=== PATIENT | female | born 2000 | race Caucasian/White ===

== ENCOUNTER 2020-08-02 13:29 | Emergency (ER) | payer OTHER ==
[~2020-08-02] VITALS: Ht 170.2 cm; Wt 95.2 kg
[~2020-08-02 13:29] MED LIST: ALBU2SYA PO; ALBU90OI INH; AMOX50SU PO; AZIT250 PO; CODACEE120 PO; GUAI100SY PO; HYDPAM50 PO; PRED15SY PO; SULTRIEL PO; TRIAMINIC
[2020-08-02 13:46] LABS: Source, Urine Clean Catch
[2020-08-02 13:56] LABS: Appearance, Urine Hazy (Clear); Bilirubin, Urine Neg (Neg); Blood, Urine 4+ (Neg); Color, Urine Yellow (P-Yellow); Glucose Qualitative, Urine Neg (Neg); Ketones, Urine Neg (Neg); Leukocyte Esterase, Urine 2+ (Neg); Nitrite, Urine Neg (Neg); Protein, Urine 2+ (Neg); Specific Gravity, Urine 1.025 (1.003-1.022); Urobilinogen, Urine NORM (Normal)
[2020-08-02 14:17] LABS: Mucus Light (0-Heavy)
[2020-08-02 14:18] LABS: Bacteria Mod /hpf; Red Blood Cells, Urine 25-50 /hpf (0-2); Squamous Epithelial Cells Mod /hpf (Few)
[2020-08-02 14:19] LABS: Amorphous Light (0-Heavy); Transitional Epithelial Cells Few /hpf (0-Rare)
[2020-08-02] MEDS ORDERED: CEPH500 PO (14:25)
== END 2020-08-02 14:39 | disposition home or self-care (01) ==
LOC: ER 13:29
PROVIDERS: Physician Assistant
DX: N39.0 Urinary tract infection, site not specified (principal)
CPT/HCPCS: 81001; 81025; 87077; 87086; 87186; 99283

== ENCOUNTER → 2022-10-31 | Outpatient (CLI) | payer OTHER ==
[~2022-10-31] MED LIST changes: +CEPH500 PO
[2022-10-31 14:52] LABS: Source, Urine Clean Catch
[2022-10-31 17:08] LABS: Appearance, Urine Clear (Clear); Bilirubin, Urine Neg (Neg); Blood, Urine Neg (Neg); Color, Urine Yellow (P-Yellow); Glucose Qualitative, Urine Neg (Neg); Ketones, Urine 4+ (Neg); Leukocyte Esterase, Urine Neg (Neg); Nitrite, Urine Neg (Neg); Protein, Urine 1+ (Neg); Specific Gravity, Urine 1.015 (1.003-1.022); Urobilinogen, Urine NORM (Normal)
[2022-10-31 17:12] LABS: BASOPHILS ABSOLUTE AUTO 0.06 K/mm3 (0.00-0.23); BASOPHILS PERCENT AUTO 1 % (0-2); EOSINOPHILS ABSOLUTE AUTO 0.08 K/mm3 (0.00-0.68); EOSINOPHILS PERCENT AUTO 1 % (0-6); Hematocrit 38.3 % (33.0-51.0); Hemoglobin 13.2 g/dL (11.5-16.0); IMMATURE GRAN ABSOLUTE AUTO 0.03 K/mm3 (0.00-0.10); IMMATURE GRAN PERCENT AUTO 0 % (0-1); LYMPHOCYTES ABSOLUTE AUTO 2.01 K/mm3 (0.84-5.20); LYMPHOCYTES PERCENT AUTO 21 % (21-46); MONOCYTES ABSOLUTE AUTO 0.56 K/mm3 (0.16-1.47); MONOCYTES PERCENT AUTO 6 % (4-13); Mean Corpuscular HGB Conc 34.5 g/dL (31.5-36.5); Mean Corpuscular Volume 84 fL (80-100); Mean Platelet Volume 10.4 fL (9.1-12.4); NEUTROPHILS ABSOLUTE AUTO 6.91 K/mm3 (1.96-9.15); NEUTROPHILS PERCENT AUTO 72 % (41-73); Platelet Count 347 K/mm3 (150-400); RDW Coefficient Variation 13.3 % (11.7-14.2); RDW Standard Deviation 41.1 fL (35.1-46.3); Red Blood Cell Count 4.55 M/mm3 (3.80-5.20); White Blood Cell Count 9.65 K/mm3 (4.00-11.30)
[2022-11-01 07:11] LABS: HIV AB/P24 AG SCREEN Non Reactive (Non Reactive)
[2022-11-01 08:11] LABS: HBSAG SCREEN Negative (Negative)
== END | disposition home or self-care (01) ==
LOC: LAB 14:46 → LAB SHORT 14:46
PROVIDERS: Registered Nurse Community Health
DX: Z34.91 Encounter for supervision of normal pregnancy, unspecified, first trimester (principal)
CPT/HCPCS: 80055; 84443; 87086; 87389

== ENCOUNTER → 2022-11-19 | Outpatient (CLI) | payer OTHER ==
[2022-11-21 04:40] LABS: CHLAMYDIA TRACHOMATIS, NAA Negative (Negative)
== END | disposition home or self-care (01) ==
LOC: LAB 12:00 → LAB SHORT 12:00
PROVIDERS: Registered Nurse Community Health
DX: Z34.81 Encounter for supervision of other normal pregnancy, first trimester (principal)
CPT/HCPCS: 87491; 87591

== ENCOUNTER → 2023-01-30 | Outpatient (CLI) | payer OTHER | END | disposition home or self-care (01) | LOC: LAB SHORT 13:32 → LAB 13:32 | PROVIDERS: Registered Nurse Community Health | DX: O35.8XX9 Maternal care for other (suspected) fetal abnormality and damage, other fetus (principal) | CPT/HCPCS: 86644; 86645; 86777; 86778 ==

== ENCOUNTER → 2023-03-19 | Outpatient (CLI) | payer OTHER ==
[2023-03-19 13:42] LABS: Hematocrit 37.4 % (33.0-51.0); Hemoglobin 12.6 g/dL (11.5-16.0)
== END | disposition home or self-care (01) ==
LOC: LAB 11:42 → LAB SHORT 11:42
PROVIDERS: Registered Nurse Community Health
DX: Z34.81 Encounter for supervision of other normal pregnancy, first trimester (principal)
CPT/HCPCS: 82950; 85014; 85018

== ENCOUNTER → 2023-05-08 | Outpatient (CLI) | payer OTHER | LOC: LAB SHORT 11:30 → LAB 11:30 | DX: Z34.93 Encounter for supervision of normal pregnancy, unspecified, third trimester (principal); Z3A.00 Weeks of gestation of pregnancy not specified | CPT/HCPCS: 87081; 87150 ==

== ENCOUNTER 2023-05-31 04:15 | Inpatient (IN) | payer OTHER ==
[~2023-05-31] VITALS: Ht 167.6 cm; Wt 98.0 kg
[2023-05-31] VITALS (16 sets, daily range): BP systolic 87–145; BP diastolic 56–85
[2023-05-31 05:13] LABS: BASOPHILS ABSOLUTE AUTO 0.04 K/mm3 (0.00-0.23); BASOPHILS PERCENT AUTO 0 % (0-2); EOSINOPHILS ABSOLUTE AUTO 0.17 K/mm3 (0.00-0.68); EOSINOPHILS PERCENT AUTO 1 % (0-6); Hematocrit 38.4 % (33.0-51.0); Hemoglobin 13.4 g/dL (11.5-16.0); IMMATURE GRAN ABSOLUTE AUTO 0.08 K/mm3 (0.00-0.10); IMMATURE GRAN PERCENT AUTO 1 % (0-1); LYMPHOCYTES ABSOLUTE AUTO 3.06 K/mm3 (0.84-5.20); LYMPHOCYTES PERCENT AUTO 21 % (21-46); MONOCYTES ABSOLUTE AUTO 1.02 K/mm3 (0.16-1.47); MONOCYTES PERCENT AUTO 7 % (4-13); Mean Corpuscular HGB 29.5 pg (26.0-34.0); Mean Corpuscular HGB Conc 34.9 g/dL (31.5-36.5); Mean Corpuscular Volume 84 fL (80-100); Mean Platelet Volume 11.1 fL (9.1-12.4); NEUTROPHILS ABSOLUTE AUTO 10.56 K/mm3 (1.96-9.15); NEUTROPHILS PERCENT AUTO 71 % (41-73); Platelet Count 309 K/mm3 (150-400); RDW Coefficient Variation 13.8 % (11.7-14.2); RDW Standard Deviation 42.4 fL (35.1-46.3); Red Blood Cell Count 4.55 M/mm3 (3.80-5.20); White Blood Cell Count 14.93 K/mm3 (4.00-11.30)
[2023-06-01 00:02] VITALS: BP 112/69
[2023-06-01 05:34] VITALS: BP 121/72
[2023-06-01 06:20] LABS: Hematocrit 33.9 % (33.0-51.0); Hemoglobin 11.4 g/dL (11.5-16.0); Mean Corpuscular HGB 29.4 pg (26.0-34.0); Mean Corpuscular HGB Conc 33.6 g/dL (31.5-36.5); Mean Corpuscular Volume 87 fL (80-100); Mean Platelet Volume 10.8 fL (9.1-12.4); Platelet Count 233 K/mm3 (150-400); RDW Coefficient Variation 14.2 % (11.7-14.2); RDW Standard Deviation 44.7 fL (35.1-46.3); Red Blood Cell Count 3.88 M/mm3 (3.80-5.20); White Blood Cell Count 11.72 K/mm3 (4.00-11.30)
[2023-06-01 07:45] VITALS: BP 132/75
[2023-06-01] MEDS ORDERED: PRENATAL TABLE1 EAC2 PO (11:45)
[2023-06-01] MEDS ORDERED: IBUP800 PO (11:45)
[2023-06-01 11:51] VITALS: BP 121/84
== END 2023-06-01 11:59 | disposition home or self-care (01) | DRG 807 ==
LOC: OBS 04:15 → BC 04:17 → OBS 04:37 → BC 04:39
PROVIDERS: ADMIT Registered Nurse Community Health
PROC: 10E0XZZ Delivery of Products of Conception, External Approach (ICD-10-PCS; principal; 2023-05-31)
DX: O99.344 Other mental disorders complicating childbirth (principal); Z37.0 Single live birth; Z88.8 Allergy status to other drugs, medicaments and biological substances; F41.9 Anxiety disorder, unspecified; Z3A.39 39 weeks gestation of pregnancy; O70.0 First degree perineal laceration during delivery
CPT/HCPCS: 36415; 85025; 85027; 86850; 86900; 86901; A9270; J1885; J2590

== ENCOUNTER → 2024-10-14 | Outpatient (CLI) | payer SELFPAY ==
[~2024-10-14] MED LIST changes: +IBUP800 PO; +PRENATAL TABLE1 EAC2 PO
[2024-10-14 14:23] LABS: Hematocrit 36.3 % (33.0-51.0); Hemoglobin 12.4 g/dL (11.5-16.0); Mean Corpuscular HGB 30.2 pg (26.0-34.0); Mean Corpuscular HGB Conc 34.2 g/dL (31.5-36.5); Mean Corpuscular Volume 88 fL (80-100); Mean Platelet Volume 10.5 fL (9.1-12.4); Platelet Count 313 K/mm3 (150-400); RDW Coefficient Variation 13.2 % (11.7-14.2); RDW Standard Deviation 42.8 fL (35.1-46.3); Red Blood Cell Count 4.11 M/mm3 (3.80-5.20); White Blood Cell Count 8.72 K/mm3 (4.00-11.30)
[2024-10-14 14:49] LABS: Free Thyroxine 0.96 ng/dL (0.70-1.60)
[2024-10-14 14:54] LABS: Albumin, Blood 3.6 g/dL (3.4-5.0); Albumin/Globulin Ratio 1.1 (0.8-1.8); Bilirubin, Total 0.3 mg/dL (0.1-1.0); Bun/Creatinine Ratio 12.6 (12.0-20.0); Calcium, Blood 9.3 mg/dL (8.5-10.1); Creatinine, Blood 0.55 mg/dL (0.40-1.00); Globulin, Blood 3.2 g/dL (2.2-4.0); Potassium, Blood 3.5 mmol/L (3.5-5.5); Thyroid Stimulating Hormone 1.11 uIU/mL (0.360-4.800); Total Protein, Blood 6.8 g/dL (6.4-8.2); Triiodothyronine, Free 2.36 pg/mL (2.18-3.98)
== END ==
LOC: LAB SHORT 12:59 → LAB 12:59
PROVIDERS: Registered Nurse Community Health
DX: R56.9 Unspecified convulsions (principal)
CPT/HCPCS: 80053; 84439; 84443; 84481; 85027

== ENCOUNTER 2024-11-23 10:21 | Emergency (ER) | payer OTHER ==
[~2024-11-23] VITALS: Ht 170.2 cm; Wt 72.6 kg
[2024-11-23] MEDS ORDERED: NS 1,000 ML IV SCH (10:50)
[2024-11-23] MEDS ORDERED: LORazepam 2 MG/ML 1ML Injection IV ONE (10:50)
[2024-11-23 11:10] LABS: BASOPHILS ABSOLUTE AUTO 0.07 K/mm3 (0.00-0.23); BASOPHILS PERCENT AUTO 0 % (0-2); EOSINOPHILS ABSOLUTE AUTO 0.01 K/mm3 (0.00-0.68); EOSINOPHILS PERCENT AUTO 0 % (0-6); Hemoglobin 14.1 g/dL (11.5-16.0); IMMATURE GRAN ABSOLUTE AUTO 0.12 K/mm3 (0.00-0.10); IMMATURE GRAN PERCENT AUTO 1 % (0-1); LYMPHOCYTES ABSOLUTE AUTO 1.22 K/mm3 (0.84-5.20); LYMPHOCYTES PERCENT AUTO 5 % (21-46); MONOCYTES ABSOLUTE AUTO 1.07 K/mm3 (0.16-1.47); MONOCYTES PERCENT AUTO 5 % (4-13); Mean Corpuscular HGB 30.5 pg (26.0-34.0); Mean Corpuscular HGB Conc 34.4 g/dL (31.5-36.5); Mean Corpuscular Volume 89 fL (80-100); Mean Platelet Volume 10.2 fL (9.1-12.4); NEUTROPHILS ABSOLUTE AUTO 20.12 K/mm3 (1.96-9.15); NEUTROPHILS PERCENT AUTO 89 % (41-73); Platelet Count 321 K/mm3 (150-400); RDW Coefficient Variation 13.3 % (11.7-14.2); RDW Standard Deviation 43.4 fL (35.1-46.3); Red Blood Cell Count 4.62 M/mm3 (3.80-5.20); White Blood Cell Count 22.61 K/mm3 (4.00-11.30)
[2024-11-23] MEDS ORDERED: ZAFEMY 150-351 EACH (11:12)
[2024-11-23] MEDS ORDERED: ZOLOFT50 MG PO (11:12)
[2024-11-23 11:45] LABS: Alanine Aminotransfer (ALT/SGP 18 U/L (12-78); Albumin/Globulin Ratio 1.2 (0.8-1.8); Alk Phos 59 U/L (50-136); Anion Gap 9 mmol/L (3-11); Aspartate Aminotrans (AST/SGOT 19 U/L (12-37); Bilirubin, Total 0.7 mg/dL (0.1-1.0); Blood Urea Nitrogen 9 mg/dL (8-24); Bun/Creatinine Ratio 14.1 (12.0-20.0); CO2, Blood 21 mmol/L (21-32); Calcium, Blood 9.2 mg/dL (8.5-10.1); Chloride, Blood 116 mmol/L (98-108); Creatinine, Blood 0.64 mg/dL (0.40-1.00); Ethanol (Alcohol), Blood, Med <3 mg/dL; Globulin, Blood 3.3 g/dL (2.2-4.0); Glomerular Filtration Rate 126 (60-); Glucose, Blood 118 mg/dL (70-99); Sodium, Blood 142 mmol/L (136-145); Total Protein, Blood 7.3 g/dL (6.4-8.2)
[2024-11-23 13:01] LABS: Source, Urine Clean Catch
[2024-11-23 13:12] LABS: Appearance, Urine Clear (Clear); Bilirubin, Urine Neg (Neg); Blood, Urine 5+ (Neg); Glucose Qualitative, Urine Neg (Neg); Ketones, Urine 3+ (Neg); Leukocyte Esterase, Urine Neg (Neg); Nitrite, Urine Neg (Neg); Protein, Urine 1+ (Neg); Specific Gravity, Urine 1.015 (1.003-1.022); Urobilinogen, Urine NORM (Normal)
[2024-11-23 14:12] LABS: U Amphetamine Screen Not Detected; U Barbituate Screen Not Detected; U Benzodiazapine Screen Not Detected; U Buprenorphine Screen Not Detected; U Cannabinoids Screen DETECTED; U Cocaine Screen Not Detected; U Methadone Screen Not Detected; U Methamphetamine Screen Not Detected; U Opiates Screen Not Detected; U Oxycodone Screen Not Detected; U Phencyclidine Screen Not Detected
[2024-11-23] MEDS ORDERED: LEVE500 PO (14:29)
[2024-11-23 14:32] LABS: Color, Urine Pale Yellow (P-Yellow); Uric Acid Crystals Mod /hpf
[2024-11-23 14:33] LABS: Bacteria Many /hpf; Squamous Epithelial Cells Few /hpf (Few); White Blood Cells, Urine 0-2 /hpf (0-5)
[2024-11-23 14:44] VITALS: BP 119/70
[2024-11-26] MEDS ORDERED: Bactrim Ds Tab1 EACH PO (08:20)
== END 2024-11-23 15:55 | disposition home or self-care (01) ==
LOC: ER 10:21
PROVIDERS: Emergency Medicine
DX: R56.9 Unspecified convulsions (principal); F12.90 Cannabis use, unspecified, uncomplicated
CPT/HCPCS: 70450; 80053; 80320; 81001; 82947; 84146; 84703; 85025; 87077; 87086; 87186; 93005; 93010; 96361; 96374; 99285-25; J2060; J7030

== ENCOUNTER 2024-12-18 03:42 | Emergency (ER) | payer OTHER ==
[~2024-12-18] VITALS: Ht 170.2 cm; Wt 81.7 kg
[~2024-12-18 03:42] MED LIST changes: +Bactrim Ds Tab1 EACH PO; +LEVE500 PO; +ZAFEMY 150-351 EACH; +ZOLOFT50 MG PO
[2024-12-18 04:04] LABS: BASOPHILS ABSOLUTE AUTO 0.08 K/mm3 (0.00-0.23); BASOPHILS PERCENT AUTO 1 % (0-2); EOSINOPHILS PERCENT AUTO 5 % (0-6); Hematocrit 37.8 % (33.0-51.0); Hemoglobin 12.6 g/dL (11.5-16.0); IMMATURE GRAN ABSOLUTE AUTO 0.03 K/mm3 (0.00-0.10); IMMATURE GRAN PERCENT AUTO 0 % (0-1); LYMPHOCYTES ABSOLUTE AUTO 1.52 K/mm3 (0.84-5.20); LYMPHOCYTES PERCENT AUTO 19 % (21-46); MONOCYTES ABSOLUTE AUTO 0.34 K/mm3 (0.16-1.47); MONOCYTES PERCENT AUTO 4 % (4-13); Mean Corpuscular HGB 29.8 pg (26.0-34.0); Mean Corpuscular HGB Conc 33.3 g/dL (31.5-36.5); Mean Corpuscular Volume 89 fL (80-100); Mean Platelet Volume 10.6 fL (9.1-12.4); NEUTROPHILS ABSOLUTE AUTO 5.81 K/mm3 (1.96-9.15); NEUTROPHILS PERCENT AUTO 71 % (41-73); Platelet Count 299 K/mm3 (150-400); RDW Coefficient Variation 13.2 % (11.7-14.2); RDW Standard Deviation 43.4 fL (35.1-46.3); Red Blood Cell Count 4.23 M/mm3 (3.80-5.20); White Blood Cell Count 8.18 K/mm3 (4.00-11.30)
[2024-12-18 04:30] LABS: Albumin, Blood 3.6 g/dL (3.4-5.0); Albumin/Globulin Ratio 1.2 (0.8-1.8); Bilirubin, Total 0.5 mg/dL (0.1-1.0); Calcium, Blood 8.5 mg/dL (8.5-10.1); Creatinine, Blood 0.7 mg/dL (0.40-1.00); Globulin, Blood 2.9 g/dL (2.2-4.0); Potassium, Blood 4.2 mmol/L (3.5-5.5); Prolactin 69.5 ng/mL; Total Protein, Blood 6.5 g/dL (6.4-8.2)
[2024-12-18] MEDS ORDERED: Lactated Ringer's 1,000 ML IV ONE (04:50)
[2024-12-18 05:15] LABS: Source, Urine Clean Catch
[2024-12-18 05:26] LABS: Appearance, Urine Hazy (Clear); Bilirubin, Urine Neg (Neg); Blood, Urine Neg (Neg); Color, Urine Yellow (P-Yellow); Glucose Qualitative, Urine Neg (Neg); Ketones, Urine Neg (Neg); Leukocyte Esterase, Urine Neg (Neg); Nitrite, Urine Neg (Neg); Protein, Urine 2+ (Neg); Specific Gravity, Urine 1.025 (1.003-1.022); Urobilinogen, Urine NORM (Normal)
[2024-12-18 05:30] VITALS: BP 153/67
[2024-12-18 05:40] LABS: Bacteria Many /hpf; Red Blood Cells, Urine 0-2 /hpf (0-2); Squamous Epithelial Cells Many /hpf (Few)
[2024-12-18 05:41] LABS: Mucus Heavy (0-Heavy)
[2024-12-18 05:43] LABS: Amorphous Light (0-Heavy); Transitional Epithelial Cells Rare /hpf (0-Rare)
== END 2024-12-18 06:36 ==
LOC: ER 03:42
PROVIDERS: Student in an Organized Health Care Education/Training Program
DX: R56.9 Unspecified convulsions (principal); Z79.899 Other long term (current) drug therapy; Z79.3 Long term (current) use of hormonal contraceptives; Z79.2 Long term (current) use of antibiotics
CPT/HCPCS: 80053; 81001; 84146; 84703; 85025; 87086; 93005; 93010; 99284-25; J7120

== ENCOUNTER 2024-12-26 11:00 | Inpatient (IN) | payer OTHER ==
[~2024-12-26] VITALS: Ht 167.6 cm; Wt 72.6 kg
[~2024-12-26 11:00] MED LIST changes: -ZOLOFT50 MG PO
[2024-12-26 11:37] LABS: Source, Urine Clean Catch
[2024-12-26 11:42] LABS: Appearance, Urine Clear (Clear); Bilirubin, Urine Neg (Neg); Blood, Urine Neg (Neg); Glucose Qualitative, Urine Neg (Neg); Ketones, Urine Neg (Neg); Leukocyte Esterase, Urine Neg (Neg); Nitrite, Urine Neg (Neg); Protein, Urine Neg (Neg); Urobilinogen, Urine NORM (Normal)
[2024-12-26 11:46] LABS: BASOPHILS ABSOLUTE AUTO 0.08 K/mm3 (0.00-0.23); BASOPHILS PERCENT AUTO 1 % (0-2); EOSINOPHILS ABSOLUTE AUTO 0.34 K/mm3 (0.00-0.68); EOSINOPHILS PERCENT AUTO 5 % (0-6); Hemoglobin 11.6 g/dL (11.5-16.0); IMMATURE GRAN ABSOLUTE AUTO 0.01 K/mm3 (0.00-0.10); IMMATURE GRAN PERCENT AUTO 0 % (0-1); LYMPHOCYTES ABSOLUTE AUTO 1.21 K/mm3 (0.84-5.20); LYMPHOCYTES PERCENT AUTO 17 % (21-46); MONOCYTES ABSOLUTE AUTO 0.22 K/mm3 (0.16-1.47); MONOCYTES PERCENT AUTO 3 % (4-13); Mean Corpuscular HGB 29.1 pg (26.0-34.0); Mean Corpuscular HGB Conc 33.1 g/dL (31.5-36.5); Mean Corpuscular Volume 88 fL (80-100); Mean Platelet Volume 9.8 fL (9.1-12.4); NEUTROPHILS ABSOLUTE AUTO 5.16 K/mm3 (1.96-9.15); NEUTROPHILS PERCENT AUTO 74 % (41-73); Platelet Count 361 K/mm3 (150-400); RDW Coefficient Variation 13.2 % (11.7-14.2); RDW Standard Deviation 42.5 fL (35.1-46.3); Red Blood Cell Count 3.99 M/mm3 (3.80-5.20); White Blood Cell Count 7.02 K/mm3 (4.00-11.30)
[2024-12-26 11:48] LABS: Color, Urine Pale Yellow (P-Yellow)
[2024-12-26 11:57] LABS: U Amphetamine Screen Not Detected; U Barbituate Screen Not Detected; U Benzodiazapine Screen Not Detected; U Cannabinoids Screen DETECTED; U Cocaine Screen Not Detected; U Methadone Screen Not Detected; U Methamphetamine Screen Not Detected; U Opiates Screen Not Detected; U Phencyclidine Screen Not Detected
[2024-12-26 11:58] LABS: U Buprenorphine Screen Not Detected; U Oxycodone Screen Not Detected
[2024-12-26 12:08] LABS: Ethanol (Alcohol), Blood, Med <3 mg/dL; Salicylate 1.9 mg/dL (2.8-20.0)
[2024-12-26 12:14] LABS: Alanine Aminotransfer (ALT/SGP 19 U/L (12-78); Albumin, Blood 3.7 g/dL (3.4-5.0); Albumin/Globulin Ratio 1.3 (0.8-1.8); Alk Phos 47 U/L (50-136); Anion Gap 6 mmol/L (3-11); Aspartate Aminotrans (AST/SGOT 9 U/L (12-37); Bilirubin, Total 0.2 mg/dL (0.1-1.0); Blood Urea Nitrogen 7 mg/dL (8-24); Bun/Creatinine Ratio 10.1 (12.0-20.0); CO2, Blood 26 mmol/L (21-32); Calcium, Blood 8.8 mg/dL (8.5-10.1); Chloride, Blood 114 mmol/L (98-108); Creatinine, Blood 0.69 mg/dL (0.40-1.00); Globulin, Blood 2.8 g/dL (2.2-4.0); Glomerular Filtration Rate 123 (60-); Glucose, Blood 102 mg/dL (70-99); Potassium, Blood 3.2 mmol/L (3.5-5.5); Sodium, Blood 143 mmol/L (136-145); Total Protein, Blood 6.5 g/dL (6.4-8.2)
[2024-12-26 12:15] LABS: Acetaminophen, Random <2.0 ug/mL (10.0-30.0)
[2024-12-26 16:45] VITALS: BP 137/99
[2024-12-26] MEDS ORDERED: Potassium Chloride 20 MEQ TabCR PO ONE (17:25)
[2024-12-26] MEDS ORDERED: LORazepam 1 MG Tab PO ONE (17:30)
[2024-12-26] MEDS ORDERED: Potassium Chloride 20 MEQ/15 ML UDC PO ONE (17:30)
[2024-12-27] MEDS ORDERED: BIRTH CONTROL (10:36)
[2024-12-27] MEDS ORDERED: ZOLOFT50 MG PO (12:59)
== END 2024-12-26 20:59 | disposition home or self-care (01) | DRG 881 ==
LOC: ER 11:00 → EOR 11:01 → EDBEDREQSVC 16:11 → EDBEDREQTM 16:11 → EDBEDREQ 16:11 → EOR 20:59
PROVIDERS: ADMIT Student in an Organized Health Care Education/Training Program
DX: F43.21 Adjustment disorder with depressed mood (principal); R45.851 Suicidal ideations; F41.9 Anxiety disorder, unspecified; F12.10 Cannabis abuse, uncomplicated; Z88.8 Allergy status to other drugs, medicaments and biological substances; Z79.899 Other long term (current) drug therapy; Z79.82 Long term (current) use of aspirin
CPT/HCPCS: 80053; 80320; 81003; 81025; 84132; 85025; 93005; 93010; 99285-25; A9270; G0378; G0480

== ENCOUNTER 2024-12-26 11:01 | Inpatient (IN) | payer BC, OTHER ==
[~2024-12-26] VITALS: Wt 73.0 kg
[2024-12-26] MEDS ORDERED: Mirtazapine 30 MG SoluTab SL ONE (21:50)
[2024-12-26] MEDS ORDERED: Polyethylene Glycol 3350 17 gm PO PRN (21:50)
[2024-12-26] MEDS ORDERED: Haloperidol Lactate Inj. 5 MG/ML Injection IM PRN (21:55)
[2024-12-26] MEDS ORDERED: Ibuprofen 600 MG Tab PO PRN (21:55)
[2024-12-26] MEDS ORDERED: FLU VACC TS2024-25(6MOS UP)/PF 45 MCG/0.5 ML SYRINGE IM SCH (21:55)
[2024-12-26] MEDS ORDERED: DiphenhydrAMINE HCl 50 MG/ML 1ML Vial IV PRN (21:55)
[2024-12-26] MEDS ORDERED: Haloperidol 5 MG Tab PO PRN (21:55)
[2024-12-26] MEDS ORDERED: OLANZapine ODT 10 MG Tab MM PRN (21:55)
[2024-12-26] MEDS ORDERED: HydrOXYzine Pamoate 50 MG Cap PO PRN (21:55)
[2024-12-26] MEDS ORDERED: Acetaminophen 325 MG TABLET PO PRN (22:00)
[2024-12-26] MEDS ORDERED: Aluminum Hydroxide 320MG/5ML 473 ML PO PRN (22:00)
[2024-12-26] MEDS ORDERED: TraZODone HCl 50 MG Tab PO PRN (22:00)
[2024-12-26] MEDS ORDERED: DiphenhydrAMINE HCl 50 MG Cap PO PRN (22:00)
[2024-12-26] MEDS ORDERED: Calcium Carbonate 500 MG Tab Chew PO PRN (22:00)
[2024-12-26] MEDS ORDERED: Melatonin 3 MG Tab PO PRN (22:00)
[2024-12-26] MEDS ORDERED: Mirtazapine 15 MG SoluTab PO ONE (22:10)
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
[2024-12-26] MEDS ORDERED: LORazepam 2 MG/ML 1ML Injection IM PRN (23:45)
[2024-12-26] MEDS ORDERED: LORazepam 2 MG Tab PO PRN (23:50)
[2024-12-26] MEDS ORDERED: Ondansetron 4 MG SoluTab MM PRN (23:50)
--- NOTE | 2024-12-27 01:48 | NUR ---
I washed, dried, folded and put this patients clothes in bin #7 and put her valuables in the safe. I charged her phone but was unable to shut it off as this patient was having a very difficult time with emotional regulation upon admission. Her phone will need to charged prior to her discharge.
--- NOTE | 2024-12-27 03:58 | NUR ---
SHIFT SUMMARY: PT A/O X4. DENIES TO BE SI,HI AND AVH ON ADMIT. PT REFUSED MEDS WHEN OFFERED. AFTER HER PACING AND ANGER ATTITUDE, PT FINALLY FELL ASLEEP AROUND [id number]. HAS SLEPT WELL SINCE. WILL CONTINUE MONITOR FOR SAFETY AND WELLNESS.
[2024-12-27 08:02] VITALS: BP 140/88
[2024-12-27] MEDS ORDERED: Multivitamins 1 Tab PO SCH (09:00)
[2024-12-27 09:38] VITALS: BP 140/88
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
[2024-12-27] MEDS ORDERED: BIRTH CONTROL (10:36)
--- NOTE | 2024-12-27 11:06 | NUR ---
CALL TO FAMILY. PROVIDER REQUESTED THAT PT BE CONTACTED TO CONFIRM THAT PATIENT CAN DISCHARGE HOME TODAY. VERBAL PERMISSION OBTAINED FROM PATIENT TO SPEAK WITH HER , KATERINA. CALL PLACED AND SPOKE WITH KATERINA. DISCUSSED PLAN FOR DISCHARGING PATIENT HOME TODAY. STATED "OF COURSE" WHEN ASKED IF HE WAS COMFORTABLE WITH PT DISCHARGING BACK HOME TO THEIR HOUSE TODAY. CONFIRMED THAT PT IS ABLE TO RETURN TO HER LIVING SITUATION.
[2024-12-27] MEDS ORDERED: ZOLOFT50 MG PO (12:59)
--- NOTE | 2024-12-27 13:06 | NUR ---
PT DISCHARGED HOME. STATED UNDERSTANDING OF DISCHARGED INSTRUCTIONS AND DENIED QUESTIONS. BELONGINGS RETURNED BY SHANNON CHOWDARY. PT RIDE ARRIVED AND PT AMBULATED OUT OF THE UNIT WITH DISCHARGE INSTRUCTIONS AND BELONGINGS IN HAND.
[2024-12-27] MEDS ORDERED: Mirtazapine 15 MG SoluTab PO SCH (21:00)
[2024-12-28] MEDS ORDERED: Sertraline HCl 50 MG Tab PO SCH (09:00)
== END 2024-12-27 13:06 | disposition home or self-care (01) | DRG 881 ==
LOC: BHU 11:01
PROVIDERS: ADMIT Psychiatry & Neurology Psychiatry
DX: F43.21 Adjustment disorder with depressed mood (principal); R45.851 Suicidal ideations; Z88.6 Allergy status to analgesic agent
CPT/HCPCS: A9270

== ENCOUNTER → 2025-04-22 | Outpatient (CLI) | payer BC, OTHER ==
[~2025-04-22] MED LIST changes: +BIRTH CONTROL; +FOLI1 PO; +LEVETIRACETAM50014 PO; +SERT25 PO; +ZOLOFT50 MG PO
[2025-04-23 08:22] LABS: Chlamydia Trachomatis Urine NOT DETECTED (NOT DETECT); Neisseria Gonorrhoea Urine NOT DETECTED (NOT DETECT)
== END ==
LOC: LAB 18:58 → LAB SHORT 18:58
PROVIDERS: Registered Nurse Community Health
DX: Z34.91 Encounter for supervision of normal pregnancy, unspecified, first trimester (principal)
CPT/HCPCS: 87491; 87591